=== PATIENT | female | born 2000 | race Caucasian/White ===

== ENCOUNTER 2022-01-30 22:53 | Emergency (ER) | payer SELFPAY ==
[2022-01-30 23:41] VITALS: BP 112/71; PULSE 90; TEMP 98.8; BMI 23.0
[2022-01-31] MEDS ORDERED: METOCLOPRAMIDE HCL INJECTION 10 MG/2 ML VIAL IM ONE (00:25)
[2022-01-31] MEDS ORDERED: IBUPROFEN 400 MG TABLET (FP) PO ONE ×2 (00:25→00:31)
[2022-01-31] MEDS ORDERED: METOCLOPRAMIDE HCL 10 MG TABLET (FP) PO ONE (00:31)
== END 2022-01-31 01:46 | disposition home or self-care (01) ==
LOC: JER 22:53
PROC: 3E023NZ Introduction of Analgesics, Hypnotics, Sedatives into Muscle, Percutaneous Approach (ICD-10-PCS; principal; 2022-01-31)
DX: R51.9 Headache, unspecified (principal)
CPT/HCPCS: 99283-25

== ENCOUNTER 2023-08-09 03:47 | Emergency (ER) | payer OTHER ==
[2023-08-09 03:52] VITALS: BMI 26.5
[2023-08-09] MEDS ORDERED: ACETAMINOPHEN 325 MG TABLET (FP) PO ONE (04:38)
[2023-08-09] MEDS ORDERED: ACETAMINOPHEN 325 MG TABLET (FP) ONE (04:59)
[2023-08-09] MEDS: LACTATED RINGERS SOLUTION 1,000 ML IV SCH ×2 (06:25→08:30)
[2023-08-09 06:45] VITALS: BP 115/75; PULSE 129; RESP 19; TEMP 99.1
== END 2023-08-09 10:24 | disposition home or self-care (01) ==
LOC: JER 03:47
DX: O23.33 Infections of other parts of urinary tract in pregnancy, third trimester (principal); J10.1 Influenza due to other identified influenza virus with other respiratory manifestations; R05.9 Cough, unspecified; Z3A.32 32 weeks gestation of pregnancy; Z20.822 Contact with and (suspected) exposure to COVID-19
CPT/HCPCS: 0241U-QW; 99283-25

== ENCOUNTER 2023-09-10 08:36 | Inpatient (IN) | payer OTHER ==
[2023-09-10] MEDS: ELECTROLYTE-148 SOLN 1,000 ML IV SCH (10:00)
[2023-09-10] MEDS ORDERED: OXYTOCIN 30 UNITS in 0.9% NS 30 UNIT/500 ML INFUS.BAG IVPB ONE (12:21)
[2023-09-10 12:49] VITALS: BMI 27.8
[2023-09-10 13:04] LABS: BASO % 0.4 % (0-2.0); EOS % 0.2 % (0-4.5); HEMOGLOBIN 12.6 GM/dL (10.7-15.3); LYMPH % 12.4 % (8-40); MCH 27.8 pg (25.7-33.7); MEAN CELL VOLUME 81.6 fl (80-96); MEAN PLT VOLUME 8.6 fl (7.5-11.1); MONO % 5.7 % (3.8-10.2); NEUT % 81.3 % (42.8-82.8); PLATELET COUNT 265 10^3/uL (134-434); RBC 4.54 M/mm3 (3.60-5.2); RDW 14.9 % (11.6-15.6); WHITE BLOOD COUNT 10.8 K/mm3 (4.0-10.0)
[2023-09-10 14:19] LABS: BLOOD UREA NITROGEN 8.1 mg/dL (7-18); CALCIUM 8.3 mg/dL (8.5-10.1); CREATININE 0.5 mg/dL (0.55-1.3)
[2023-09-10 14:30] LABS: INR 0.93 (0.83-1.09); PROTHROMBIN TIME (PATIENT) 10.8 SEC (9.7-13.0)
[2023-09-10 14:33] LABS: ACTIVATED PTT 28.6 SECONDS (25.2-36.5)
[2023-09-10] MEDS ORDERED: OXYTOCIN 20 UNITS in 0.9% NS 20 UNIT/1,000 ML INFUS.BAG IV ONE (23:20)
[2023-09-11] MEDS ORDERED: BUTORPHANOL TARTRATE 2 MG/ML VIAL ONE (01:05)
[2023-09-11] MEDS ORDERED: SODIUM CHLORIDE 100 ML IVPB ONE (01:06)
[2023-09-11] MEDS ORDERED: PROMETHAZINE HCL 25 MG/1 ML VIAL ONE (01:06)
[2023-09-11] MEDS: PROMETHAZINE HCL 25 MG/1 ML VIAL IVPB ONE (01:32)
[2023-09-11] MEDS: BUTORPHANOL TARTRATE 2 MG/ML VIAL IVPUSH PRN (01:33)
[2023-09-11] MEDS ORDERED: FENTANYL/BUPIVACAINE/NS/PF - PCEA - 50 ML DISP.SYRIN EP ONE ×2 (06:18→11:28)
[2023-09-11] MEDS ORDERED: BUPIVACAINE HCL/PF 0.25% (2.5MG/ML) 10 ML VIAL ONE (06:32)
[2023-09-11] MEDS ORDERED: LIDO 2%/EPI 1:200000 PRESRVFRE (20 ML SDVIAL) ONE (06:33)
[2023-09-11] MEDS: FENTANYL/BUPIVACAINE/NS/PF - PCEA - 50 ML DISP.SYRIN EP SCH (06:58)
[2023-09-11] MEDS ORDERED: NALOXONE HCL 0.4 MG/ML VIAL IVPUSH PRN (07:06)
[2023-09-11] MEDS ORDERED: AMPICILLIN SODIUM 2 GM VIAL ONE (07:19)
[2023-09-11] MEDS: AMPICILLIN - 2 GM in SODIUM CHLORIDE 100 ML IVPB ONE (07:30)
[2023-09-11] MEDS ORDERED: ACETAMINOPHEN INJECTION 100 ML IVPB ONE (09:55)
[2023-09-11] MEDS: ACETAMINOPHEN 1000 MG/100 ML BAG IVPB ONE (09:58)
[2023-09-11] MEDS ORDERED: OXYTOCIN 30 UNITS in 0.9% NS 30 UNIT/500 ML INFUS.BAG IVPB ONE (10:35)
[2023-09-11] MEDS: OXYTOCIN 30 UNITS in 0.9% NS 30 UNIT/500 ML INFUS.BAG IVPB SCH ×2 (10:50→19:27)
[2023-09-11] MEDS ORDERED: LIDOCAINE HCL 1% PRESERVATIVE FREE - 30ML VIAL ONE (14:54)
[2023-09-11] MEDS: OXYTOCIN 20 UNITS in 0.9% NS 20 UNIT/1,000 ML INFUS.BAG IV SCH (15:25)
[2023-09-11] MEDS: AMPICILLIN SODIUM 1 GM VIAL IVPB ONE (15:30)
[2023-09-11] MEDS ORDERED: AMPICILLIN SODIUM 1 GM VIAL ONE (15:31)
[2023-09-11] MEDS ORDERED: METHYLERGONOVINE MALEATE 0.2 MG/1 ML AMP IM PRN (16:37)
[2023-09-11] MEDS ORDERED: BENZOCAINE 28 GM HEMORRHOIDAL OINTMENT TP PRN (16:37)
[2023-09-11] MEDS ORDERED: oxyCODONE HCL 5 MG TABLET PO PRN (16:37)
[2023-09-11] MEDS ORDERED: WITCH HAZEL 50% (TUCKS) 40 PAD/JAR PAD TP PRN (16:37)
[2023-09-11] MEDS ORDERED: BISACODYL 10 MG SUPP.RECT RC PRN (16:37)
[2023-09-11 16:52] LABS: CORD BASE EXCESS -7.9 mmol/L (0-2); CORD PCO2 50.2 mmHg (30-78); CORD pH 7.219 (7.14-7.44)
[2023-09-11 16:54] LABS: CORD HCO3 18.3 mmHg (20-29); CORD PCO2 57.5 mmHg (30-78); CORD pH 7.121 (7.14-7.44)
[2023-09-11] MEDS: ACETAMINOPHEN 325 MG TABLET (FP) PO PRN (18:40)
[2023-09-11] MEDS: AMPICILLIN - 2 GM in SODIUM CHLORIDE 100 ML IVPB SCH (18:57)
[2023-09-11] MEDS: FERROUS SO4 325 MG TABLET (FP) PO SCH (18:59)
[2023-09-11] MEDS: IBUPROFEN 600 MG TABLET (FP) PO PRN (20:51)
[2023-09-12] MEDS: BENZOCAINE 20% 57 GM BOTTLE TP PRN (00:02)
[2023-09-12 06:47] LABS: HEMATOCRIT 21.2 % (32.4-45.2); HEMOGLOBIN 7.1 GM/dL (10.7-15.3); MCH 27.3 pg (25.7-33.7); MCHC 33.3 g/dl (32.0-36.0); MEAN PLT VOLUME 8.2 fl (7.5-11.1); PLATELET COUNT 196 10^3/uL (134-434); RBC 2.59 M/mm3 (3.60-5.2); RDW 15.1 % (11.6-15.6); WHITE BLOOD COUNT 20.6 K/mm3 (4.0-10.0)
[2023-09-12 09:57] LABS: ANISOCYTOSIS 0; HELMET CELLS 0; HOWELL-JOLLY BODIES 0; MACROCYTOSIS 0; OVALOCYTE 0; ROULEAU 0; SICKELED CELLS 0; TARGET CELLS 0; TEAR DROP CELLS 0; TOXIC GRANULATION 0
[2023-09-12] MEDS: PRENATAL VITAMINS W/ FOLIC ACID TABLET (FP) PO SCH (10:25)
[2023-09-12 16:33] LABS: BASO % 0.2 % (0-2.0); EOS % 0.2 % (0-4.5); HEMATOCRIT 22.7 % (32.4-45.2); HEMOGLOBIN 7.7 GM/dL (10.7-15.3); MCHC 33.9 g/dl (32.0-36.0); MEAN CELL VOLUME 82.5 fl (80-96); MEAN PLT VOLUME 7.7 fl (7.5-11.1); MONO % 1.8 % (3.8-10.2); NEUT % 86.8 % (42.8-82.8); PLATELET COUNT 255 10^3/uL (134-434); RBC 2.74 M/mm3 (3.60-5.2); RDW 15.5 % (11.6-15.6); WHITE BLOOD COUNT 16.5 K/mm3 (4.0-10.0)
[2023-09-12] MEDS: ACETAMINOPHEN 1000 MG/100 ML BAG IVPB ONE (16:39)
[2023-09-12] MEDS ORDERED: PIPERACILLIN/TAZOB 4.5 GM 4.5 GM in DEXTROSE 5%-WATER 100 ML IVPB SCH (16:57)
[2023-09-12] MEDS: PIPERACILLIN/TAZOB 4.5 GM 4.5 GM in DEXTROSE 5%-WATER 100 ML IVPB SCH (17:24)
[2023-09-12] MEDS: SODIUM CHLORIDE 1,000 ML IV SCH (17:26)
[2023-09-12 19:34] LABS: POTASSIUM 3.7 mmol/L (3.5-5.1)
[2023-09-12 19:37] LABS: BLOOD UREA NITROGEN 10.3 mg/dL (7-18); CALCIUM 7.6 mg/dL (8.5-10.1)
[2023-09-12 19:38] LABS: ALBUMIN 1.8 g/dl (3.4-5.0)
[2023-09-12 19:42] LABS: BILIRUBIN,TOTAL 0.2 mg/dL (0.2-1); TOT PROT 4.8 g/dl (6.4-8.2)
[2023-09-12 19:44] LABS: CREATININE 0.7 mg/dL (0.55-1.3); LACTIC ACID 2.3 mmol/L (0.4-2.0)
[2023-09-12 20:23] LABS: EPI CELLS >36 /uL (0-25.1); HYALINE CASTS 1 /uL (0-3.1); PH,URINE 5.5 (5.0-8.0); URINE APPEARANCE CLEAR; URINE BACTERIA 14 /uL (0-1359); URINE BILIRUBIN NEGATIVE (NEGATIVE); URINE COLOR YELLOW; URINE GLUCOSE (UA) NEGATIVE (NEGATIVE); URINE KETONE NEGATIVE (NEGATIVE); URINE LEUK ESTERASE 3+ (NEGATIVE); URINE NITRITE NEGATIVE (NEGATIVE); URINE PROTEIN TRACE (NEGATIVE); URINE RBC 455 /uL (0-23.9); URINE UROBILINOGEN 0.2 mg/dL (0.2-1.0); URINE WBC 479 /uL (0-25.8)
[2023-09-12 21:32] LABS: URINE CRYSTALS MODERATE /hpf
[2023-09-12] MEDS ORDERED: SENNOSIDES/DOCUSATE COMBO (SENNA PLUS) TABLET (UD) PO PRN (22:00)
[2023-09-13 09:11] LABS: POTASSIUM 3.5 mmol/L (3.5-5.1)
[2023-09-13 09:13] LABS: CALCIUM 7.2 mg/dL (8.5-10.1)
[2023-09-13 09:15] LABS: CREATININE 0.5 mg/dL (0.55-1.3)
[2023-09-13 09:44] LABS: BASO % 0.4 % (0-2.0); EOS % 0.4 % (0-4.5); HEMATOCRIT 20.2 % (32.4-45.2); MCH 27.3 pg (25.7-33.7); MCHC 33.1 g/dl (32.0-36.0); MEAN CELL VOLUME 82.5 fl (80-96); MEAN PLT VOLUME 8.2 fl (7.5-11.1); MONO % 2.3 % (3.8-10.2); NEUT % 84.9 % (42.8-82.8); PLATELET COUNT 205 10^3/uL (134-434); RBC 2.44 M/mm3 (3.60-5.2); RDW 15.2 % (11.6-15.6); WHITE BLOOD COUNT 11.2 K/mm3 (4.0-10.0)
[2023-09-13 09:50] LABS: HEMOGLOBIN 6.7 GM/dL (10.7-15.3)
[2023-09-13] MEDS ORDERED: diphenhydrAMINE HCL 25 MG CAPSULE (FP) PO ONE (10:45)
[2023-09-13] MEDS: diphenhydrAMINE HCL 25 MG CAPSULE (FP) PO ONE (14:14)
[2023-09-13] MEDS: FUROSEMIDE 40 MG/4 ML INJECTABLE VIAL IVPUSH ONE (16:53)
[2023-09-13] MEDS: PIPERACILLIN/TAZOB 3.375 GM 3.375 GM in DEXTROSE 5%-WATER - 50 ML IVPB SCH (17:28)
[2023-09-13 21:43] LABS: HEMATOCRIT 27.7 % (32.4-45.2); HEMOGLOBIN 9.4 GM/dL (10.7-15.3); MEAN CELL VOLUME 82.3 fl (80-96); MEAN PLT VOLUME 7.6 fl (7.5-11.1); PLATELET COUNT 229 10^3/uL (134-434); RBC 3.37 M/mm3 (3.60-5.2); RDW 15.4 % (11.6-15.6); WHITE BLOOD COUNT 12.3 K/mm3 (4.0-10.0)
[2023-09-13 23:21] LABS: ANISOCYTOSIS 1+; MACROCYTOSIS 1+; OVALOCYTE 1+
[2023-09-13 23:28] LABS: PLATELET ESTIMATE ADEQUATE
[2023-09-14 07:16] LABS: HEMATOCRIT 29.5 % (32.4-45.2); MCH 27.8 pg (25.7-33.7); MCHC 33.8 g/dl (32.0-36.0); MEAN CELL VOLUME 82.1 fl (80-96); MEAN PLT VOLUME 7.5 fl (7.5-11.1); PLATELET COUNT 261 10^3/uL (134-434); RBC 3.59 M/mm3 (3.60-5.2); RDW 15.4 % (11.6-15.6); WHITE BLOOD COUNT 12.4 K/mm3 (4.0-10.0)
[2023-09-14 09:32] LABS: ANISOCYTOSIS 0; MACROCYTOSIS 0
[2023-09-15 08:46] LABS: HEMATOCRIT 30.6 % (32.4-45.2); HEMOGLOBIN 10.3 GM/dL (10.7-15.3); MCH 27.7 pg (25.7-33.7); MCHC 33.6 g/dl (32.0-36.0); MEAN CELL VOLUME 82.6 fl (80-96); MEAN PLT VOLUME 6.4 fl (7.5-11.1); PLATELET COUNT 350 10^3/uL (134-434); RDW 15.1 % (11.6-15.6); WHITE BLOOD COUNT 16.7 K/mm3 (4.0-10.0)
[2023-09-15 10:12] LABS: POTASSIUM 4.1 mmol/L (3.5-5.1)
[2023-09-15 10:26] LABS: CALCIUM 7.8 mg/dL (8.5-10.1)
[2023-09-15 10:27] LABS: ALBUMIN 2.1 g/dl (3.4-5.0); MAGNESIUM 1.7 mg/dL (1.8-2.4)
[2023-09-15 10:30] LABS: CREATININE 0.5 mg/dL (0.55-1.3); PHOSPHOROUS 4.9 mg/dL (2.5-4.9)
[2023-09-15 10:31] LABS: BILIRUBIN,TOTAL 0.3 mg/dL (0.2-1); TOT PROT 5.8 g/dl (6.4-8.2)
[2023-09-15 10:45] LABS: BLOOD UREA NITROGEN 7.3 mg/dL (7-18)
[2023-09-15] MEDS ORDERED: SODIUM CHLORIDE 1,000 ML IV SCH (13:30)
[2023-09-15] MEDS: SODIUM CHLORIDE 250 ML IV STA (15:00)
[2023-09-15] MEDS: SODIUM CHLORIDE 1,000 ML IV SCH (15:47)
[2023-09-15] MEDS: PIPERACILLIN/TAZOB 4.5 GM 4.5 GM in DEXTROSE 5%-WATER 100 ML IVPB SCH (17:23)
[2023-09-16 08:36] LABS: HEMATOCRIT 29.4 % (32.4-45.2); HEMOGLOBIN 10.2 GM/dL (10.7-15.3); MCH 28.2 pg (25.7-33.7); MCHC 34.6 g/dl (32.0-36.0); MEAN CELL VOLUME 81.5 fl (80-96); MEAN PLT VOLUME 6.4 fl (7.5-11.1); PLATELET COUNT 378 10^3/uL (134-434); RDW 15.1 % (11.6-15.6); WHITE BLOOD COUNT 17.3 K/mm3 (4.0-10.0)
[2023-09-16 09:03] LABS: POTASSIUM 3.8 mmol/L (3.5-5.1)
[2023-09-16 09:10] LABS: CALCIUM 8.2 mg/dL (8.5-10.1)
[2023-09-16 09:11] LABS: BLOOD UREA NITROGEN 4.6 mg/dL (7-18)
[2023-09-16 09:14] LABS: CREATININE 0.5 mg/dL (0.55-1.3)
[2023-09-16 09:20] LABS: ANISOCYTOSIS 0; MACROCYTOSIS 0
[2023-09-16] MEDS: METHYLERGONOVINE MALEATE 0.2 MG TABLET (FP) PO SCH (10:31)
[2023-09-16] MEDS ORDERED: METHYLERGONOVINE MALEATE 0.2 MG TABLET (FP) PO SCH (14:00)
[2023-09-17 08:30] LABS: HEMATOCRIT 31.2 % (32.4-45.2); HEMOGLOBIN 10.6 GM/dL (10.7-15.3); MCH 28.1 pg (25.7-33.7); MEAN CELL VOLUME 82.6 fl (80-96); MEAN PLT VOLUME 6.3 fl (7.5-11.1); PLATELET COUNT 464 10^3/uL (134-434); RBC 3.78 M/mm3 (3.60-5.2); RDW 15.4 % (11.6-15.6); WHITE BLOOD COUNT 14.5 K/mm3 (4.0-10.0)
[2023-09-17 09:04] LABS: CALCIUM 8.5 mg/dL (8.5-10.1)
[2023-09-17 09:05] LABS: BLOOD UREA NITROGEN 10.3 mg/dL (7-18)
[2023-09-17 09:10] LABS: CREATININE 0.5 mg/dL (0.55-1.3)
[2023-09-17 10:03] LABS: ANISOCYTOSIS 1+; MACROCYTOSIS 0
[2023-09-17 10:57] VITALS: RESP 17
[2023-09-17 13:52] VITALS: BP 123/68; PULSE 99; TEMP 98.2
[2023-09-17] MEDS: PIPERACILLIN/TAZOB 4.5 GM 4.5 GM in DEXTROSE 5%-WATER 100 ML IVPB ONE (15:14)
== END 2023-09-17 17:00 | disposition home or self-care (01) | DRG 560 ==
LOC: JDEL 08:36 → JLDR 10:23 → J3W 09-11 17:55
PROVIDERS: ADMIT Obstetrics & Gynecology; ATTEND Obstetrics & Gynecology
PROC: 10E0XZZ Delivery of Products of Conception, External Approach (ICD-10-PCS; principal; 2023-09-11)
PROC: 0KQM0ZZ Repair Perineum Muscle, Open Approach (ICD-10-PCS; 2023-09-11)
PROC: 30233N1 Transfusion of Nonautologous Red Blood Cells into Peripheral Vein, Percutaneous Approach (ICD-10-PCS; 2023-09-13)
DX: O48.0 Post-term pregnancy (principal); O41.03X0 Oligohydramnios, third trimester, not applicable or unspecified; O70.1 Second degree perineal laceration during delivery; O77.0 Labor and delivery complicated by meconium in amniotic fluid; O41.1230 Chorioamnionitis, third trimester, not applicable or unspecified; O86.4 Pyrexia of unknown origin following delivery; A41.89 Other specified sepsis; R00.0 Tachycardia, unspecified; Z3A.40 40 weeks gestation of pregnancy; Z37.0 Single live birth
CPT/HCPCS: 36415; 36430; 36600; 59025; 74177-TC; 76830-TC; 80048; 80053; 81003; 82803; 83605; 83735; 84100; 85025; 85027; 85610; 85730; 86780; 86850; 86900; 86901; 86922; 87040; 87086; J0131; P9058; Q9967